=== PATIENT | female | born 1990 ===

== ENCOUNTER → 2021-03-03 | Day surgery (SDC) | payer OTHER ==
[~2021-03-03] VITALS: Ht 157.5 cm; Wt 93.0 kg
[~2021-03-03] MED LIST: METHADONE PO; PHENERGAN25 M1 PO; PROTONIX 40MG T40 MG PO; SEROQUEL400 MG PO; TOPAMAX50 MG PO
[2021-03-03 09:09] LABS: BASOPHIL 0.5 % (0-2); EOSINOPHIL 2.3 % (0-5); HCT 40.8 % (37.0-47.0); HGB 13.8 g/dl (12.5-16.0); LYMPHOCYTE 29.8 % (15-48); MCH 31.8 pg (25.0-31.0); MCHC 33.8 g/dL (32.0-36.0); MONOCYTE 6.2 % (0-12); MPV 10.2 fL (6.0-9.5); NEUTROPHIL 60.3 % (41-80); NRBC 0; PLT 269 K/uL (150-400); RBC 4.34 M/uL (4.20-5.40); RDW 13.5 % (11.5-14.0); WBC 6.6 K/uL (4.0-10.5)
== END | disposition home or self-care (01) ==
LOC: FAS 07:58
PROVIDERS: Oral & Maxillofacial Surgery
DX: K02.9 Dental caries, unspecified (principal); F31.9 Bipolar disorder, unspecified; F41.9 Anxiety disorder, unspecified; F11.10 Opioid abuse, uncomplicated; Z79.899 Other long term (current) drug therapy; Z88.0 Allergy status to penicillin; Z88.5 Allergy status to narcotic agent; Z88.8 Allergy status to other drugs, medicaments and biological substances; Z91.040 Latex allergy status; Z20.822 Contact with and (suspected) exposure to COVID-19
CPT/HCPCS: D7140; D7210; 36415; 85025; 93005; J1100; J2001; J2250; J2405; J2704; J3010; J7120